=== PATIENT | female | born 1960 | race Caucasian/White ===

== ENCOUNTER 2018-08-14 09:19 | Outpatient (CLI) | payer OTHER | END 2018-08-14 09:26 | disposition home or self-care (01) | LOC: RAD 501 09:19 | DX: Z01.810 Encounter for preprocedural cardiovascular examination (principal) ==

== ENCOUNTER 2018-09-04 07:00 | Day surgery (SDC) | payer OTHER | END 2018-09-04 13:15 | disposition home or self-care (01) | LOC: CIR.AMB 07:00 | DX: M67.442 Ganglion, left hand (principal) ==